=== PATIENT | male | born 2000 ===

== ENCOUNTER 2021-04-27 17:13 | Emergency (ER) | payer OTHER ==
[~2021-04-27] VITALS: Ht 180.3 cm; Wt 93.9 kg
[2021-04-27 17:15] VITALS: BP 127/67
== END 2021-04-27 20:37 | disposition left against medical advice (07) ==
LOC: ER 17:19
DX: H57.12 Ocular pain, left eye (principal); H57.89 Other specified disorders of eye and adnexa; Z53.21 Procedure and treatment not carried out due to patient leaving prior to being seen by health care provider